=== PATIENT | female | born 1970 | race Caucasian/White ===

== ENCOUNTER 2021-12-01 07:48 | Outpatient (CLI) | payer BC, SELFPAY | END 2021-12-01 07:49 | disposition home or self-care (01) | LOC: ANHAUDIO 07:52 | PROVIDERS: Visit Provider Nurse Practitioner Family | DX: H90.0 Conductive hearing loss, bilateral (principal); R42 Dizziness and giddiness | CPT/HCPCS: 92537; 92540; 92546; 92557; 92567 ==